=== PATIENT | male | born 1970 | race Caucasian/White ===

== ENCOUNTER 2016-11-30 13:34 | Emergency (ER) ==
[2016-11-30 13:41] VITALS: BP 149/105; TEMP 98.5; BMI 30.9
--- NOTE | 2016-11-30 14:16 | CT ---
EXAM: CT of the right femur. HISTORY: Injury. COMPARISON: CT of the abdomen pelvis dated 11/08/2013. No current plain films are available. TECHNIQUE: Contiguous axial images were obtained through the right femur. Sagittal and coronal refo rmats were reviewed. No contrast. FINDINGS: There is sclerosis and fusion of the right sacroiliac joint. There is fragmentation of th e anterior acetabulum which appears chronic in nature and likely from prior injury. The margins are well corticated. The appearance is unchanged in comparison to the study dated 11/08/2013. No acute f ractures are identified. There are no lytic or blastic lesions. The soft tissues are unremarkable. No fluid collections are identified. No definite hematoma. IMPRESSION: 1. No acute fractures. 2. Probable old fracture of the anterior acetabulum.
--- NOTE | 2016-11-30 14:24 | CT ---
EXAM: CT of the right knee. HISTORY: Trauma. COMPARISON: None. No plain film. TECHNIQUE: Contiguous axial images images at 2 mm intervals obtained through the right knee. Sagitt al and coronal reformats reviewed. FINDINGS: There are no acute fractures. There are no lytic or blastic lesions. There is no signifi cant joint effusion. The anterior and posterior cruciate ligaments appear intact. There is irregula rity of the anterior tibial tubercle which appears chronic or congenital in nature. The soft tissues are normal. There are no fluid collections are mass lesions. IMPRESSION: No acute fractures.
--- NOTE | 2016-11-30 14:45 | ED.PDOC ---
General ED Provider: Dr. REYES LOGAN-ER Chief Complaint: Extremity Pain/Injury Stated Complaint: a tree limb snapped back and hit my thigh a few days ago--it still hurts--my leg is not swollen Time Seen by Physician: 13:40 Mode of Arrival: Walk-In Information Source: Patient Exam Limitations: No limitations Nursing and Triage Documentation Reviewed and Agree: Yes Musculoskeletal Complaint Exam - Lower Extremity Complaint/Exam Location of Pain: Reports: Right, Leg Mechanism of Injury: Reports: Trauma Onset/Duration: a few days Symptoms Are: Still present Onset of Pain: Reports: Immediate Initial Severity: Mild Current Severity: Mild Location: Reports: Discrete (right thigh) Character: Reports: Dull, Aching, Stiffness Alleviating: Reports: Rest, Position Aggravating: Reports: Movement, Weight bearing, Prolonged standing Able to Bear Weight: Yes Associated Signs and Symptoms: Denies: Swelling, Redness, Bruising, Fever, Weakness, Numbness, Tingling DVT Risk Factors: Reports: Recent trauma Septic Arthritis Risk Factors: Reports: None Related Surgical History: Reports: None Lower Extremity Findings: Present: Ecchymosis, Tenderness NV Bundle Intact Distal to Injury: Yes Compartment Syndrome Risk Factors: Present: Pain Rasheeda's Sign Present: No Differential Diagnoses: Compartment Syndrome, Contusion, Strain, Sprain Review of Systems - Review Of Systems Constitutional: Reports: No symptoms Eyes: Reports: No symptoms Ears, Nose, Mouth, Throat: Reports: No symptoms Respiratory: Reports: No symptoms Cardiac: Reports: No symptoms GI: Reports: No symptoms : Reports: No symptoms Musculoskeletal: Reports: Muscle pain Skin: Reports: No symptoms Neurological: Reports: No symptoms Endocrine: Reports: No symptoms Hematologic/Lymphatic: Reports: No symptoms All Other Systems: Reviewed and Negative Past Medical History - Past Medical History Previously Healthy: Yes Endocrine: Reports: Unknown Cardiovascular: Reports: Unknown Respiratory: Reports: Unknown Hematological: Reports: Unknown Gastrointestinal: Reports: Unknown Genitourinary: Reports: Unknown Neuro/Psych: Reports: Unknown Musculoskeletal: Reports: Unknown Cancer: Reports: Unknown - Surgical History General Surgical History: Reports: Unknown - Family History Family History: Reports: Unknown - Social History Smoking Status: Current every day smoker, Light tobacco smoker Hx Substance Use: No Alcohol Screening: Occasionally Physical Exam - Physical Exam Appearance: Well-appearing, No pain distress, Well-nourished Pain Distress: Mild Eyes: LATISHA, EOMI, Conjunctiva clear ENT: Ears normal, Nose normal, Oropharynx normal Neck: Supple Respiratory: Airway patent Cardiovascular: RRR, Pulses normal, No rub, No murmur GI/: Soft, Nontender, No masses, Bowel sounds normal, No Organomegaly Musculoskeletal: Limited ROM Skin: Warm, Dry, Normal color Neurological: Sensation intact, Motor intact, Reflexes intact, Cranial nerves intact, Alert, Oriented Psychiatric: Affect appropriate, Mood appropriate Physician Notification - Case Discussed Physician Notified: dr drew--accepted er evaluation and u/s of extremity Time of Notification: 15:01 Critical Care Note - Critical Care Note Total Time (mins): 0 Course - Course Orders, Labs, Meds: Lab Review 11/30/16 14:06 D-Dimer (Manual) 1348.68 Orders Category Date Time Status D-DIMER Stat LAB 11/30/16 14:[address] FEMUR RIGHT WITHOUT CONTRAS Stat RADS 11/30/16 13:[address] KNEE RIGHT WITHOUT CONTRAST Stat RADS 11/30/16 13:41 Completed Vital Signs: Temp Pulse Resp BP Pulse Ox 11/30/16 13:36 98.5 F 97 H 16 149/105 H 98 Departure - Departure Time of Disposition: 15:01 Disposition: TSF SHORT-TRM HOSP Discharge Problem: Injury of lower extremity Instructions: Leg Pain (ED) Condition: Good Pt referred to PMD for follow-up: Yes Additional Instructions: [facility] for dvt Allergies/Adverse Reactions: Allergies Sulfa (Sulfonamide Antibiotics) Adverse Reaction (Verified 11/30/16 13:41) venom-honey bee [bee venom (honey bee)] Adverse Reaction (Verified 11/30/16 13: 41) Home Medications: Ambulatory Orders Aspirin [Aspirin EC] 325 mg PO DAILYWM 05/29/13 Atorvastatin Calcium [Lipitor] 20 mg PO DAILY 05/29/13 Glipizide [Glucotrol Xl] 20 mg PO BID 05/29/13 Metformin HCl [Glucophage] 1,000 mg PO BID 05/29/13 Metoprolol Tartrate [Lopressor] 50 mg PO BID 05/29/13 Paroxetine HCl [Paxil] 20 mg PO DAILY 05/29/13 Quinapril HCl [Accupril] 80 mg PO DAILY 05/29/13 Dulaglutide [Trulicity] 0.75 mg SQ WEEKLY 11/30/16 Mirtazapine [Remeron] 15 mg PO DAILY 11/30/16 Sitagliptin Phosphate [Januvia] 25 mg PO DAILY 11/30/16 Transfer Form Completed: Yes Disposition Discussed With: Patient
== END 2016-11-30 15:53 | disposition short-term general hospital (02) ==
LOC: ED 13:34
DX: S79.921A Unspecified injury of right thigh, initial encounter (principal); M79.604 Pain in right leg; W22.8XXA Striking against or struck by other objects, initial encounter; F17.210 Nicotine dependence, cigarettes, uncomplicated
CPT/HCPCS: 36415; 85379; 99285

== ENCOUNTER 2016-12-14 10:01 | Emergency (ER) ==
[2016-12-14 10:02] VITALS: BMI 30.9
[2016-12-14 10:05] VITALS: BP 142/96; TEMP 97.4
--- NOTE | 2016-12-14 10:06 | ED.PDOC ---
General ED Provider: Dr. REYES LOGAN-ER Chief Complaint: Tooth Problem Stated Complaint: my tooth hurts and i want some antbx and i dont want any pain meds Time Seen by Physician: 10:04 Mode of Arrival: Walk-In Information Source: Patient Exam Limitations: No limitations Primary Care Provider: NAGI PATEL Nursing and Triage Documentation Reviewed and Agree: Yes EENT Complaint Exam - Dental/Oral Complaint/Exam Mechanism of Injury: No known trauma Onset/Duration: 2 days Symptoms Are: Still present Timing: Constant Initial Severity: Mild Current Severity: Mild Location: right lower molar Character: Reports: Dull, Aching, Throbbing Aggravating: Reports: Heat, Cold, Chewing Associated Signs and Symptoms: Denies: Swelling, Discharge, Fever, Foul odor, Foul taste in mouth Related History: Reports: Previous tooth problem Tooth Findings: Present: Percussion tenderness Cervical Lymphadenopathy Present: No Facial Swelling Present: No Bleeding Present: No Oropharynx Findings: Absent: Clots, Active bleeding Septal Hematoma: No Foreign Body Present: No Dysphagia Present: No Drooling Present: No Asymmetrical Tonsillar Swelling Present: No Uvula Midline: Yes Kimberley-tonsillar Fluctuence: No Trismus Present: No Palatal Petechiae Present: No Scarlatinaform Rash Present: No Differential Diagnoses: Odontogenic Pain Review of Systems - Review Of Systems Constitutional: Reports: No symptoms Eyes: Reports: No symptoms Ears, Nose, Mouth, Throat: Reports: Mouth pain Respiratory: Reports: No symptoms Cardiac: Reports: No symptoms GI: Reports: No symptoms : Reports: No symptoms Musculoskeletal: Reports: No symptoms Skin: Reports: No symptoms Neurological: Reports: No symptoms Endocrine: Reports: No symptoms Hematologic/Lymphatic: Reports: No symptoms All Other Systems: Reviewed and Negative Past Medical History - Past Medical History Previously Healthy: Yes Endocrine: Reports: Unknown Cardiovascular: Reports: Unknown Respiratory: Reports: Unknown Hematological: Reports: Unknown Gastrointestinal: Reports: Unknown Genitourinary: Reports: Unknown Neuro/Psych: Reports: Unknown Musculoskeletal: Reports: Unknown Cancer: Reports: Unknown - Surgical History General Surgical History: Reports: Unknown - Family History Family History: Reports: Unknown - Social History Smoking Status: Current every day smoker, Light tobacco smoker Hx Substance Use: No Alcohol Screening: Occasionally Physical Exam - Physical Exam Appearance: Well-appearing, No pain distress, Well-nourished Pain Distress: Mild Eyes: LATISHA, EOMI, Conjunctiva clear ENT: Ears normal, Nose normal (noted percussion tenderness around right lower molar---gums sl swollen and erythematous), Rhinorrhea Neck: Supple Respiratory: Airway patent, Breath sounds clear, Breath sounds equal, Respirations nonlabored Cardiovascular: RRR GI/: Soft, Nontender, No masses, Bowel sounds normal, No Organomegaly Musculoskeletal: Normal strength Skin: Warm Neurological: Sensation intact Psychiatric: Affect appropriate, Mood appropriate Critical Care Note - Critical Care Note Total Time (mins): 0 Departure - Departure Time of Disposition: 10:06 Disposition: HOME SELF-CARE Discharge Problem: Toothache Instructions: Toothache (ED) Condition: Good Pt referred to PMD for follow-up: Yes Additional Instructions: augmentin 875mg bid x 7 days-see dentist tomorrow(you have declined pain meds) Allergies/Adverse Reactions: Allergies Sulfa (Sulfonamide Antibiotics) Adverse Reaction (Verified 11/30/16 13:41) venom-honey bee [bee venom (honey bee)] Adverse Reaction (Verified 11/30/16 13: 41) Home Medications: Ambulatory Orders Aspirin [Aspirin EC] 325 mg PO DAILYWM 05/29/13 Atorvastatin Calcium [Lipitor] 20 mg PO DAILY 05/29/13 Glipizide [Glucotrol Xl] 20 mg PO BID 05/29/13 Metformin HCl [Glucophage] 1,000 mg PO BID 05/29/13 Metoprolol Tartrate [Lopressor] 50 mg PO BID 05/29/13 Paroxetine HCl [Paxil] 20 mg PO DAILY 05/29/13 Quinapril HCl [Accupril] 80 mg PO DAILY 05/29/13 Dulaglutide [Trulicity] 0.75 mg SQ WEEKLY 11/30/16 Mirtazapine [Remeron] 15 mg PO DAILY 11/30/16 Sitagliptin Phosphate [Januvia] 25 mg PO DAILY 11/30/16 Disposition Discussed With: Patient
== END 2016-12-14 10:09 | disposition home or self-care (01) ==
LOC: ED 10:01
DX: K08.89 Other specified disorders of teeth and supporting structures (principal); F17.210 Nicotine dependence, cigarettes, uncomplicated
CPT/HCPCS: 99281

== ENCOUNTER 2017-07-24 07:00 | Inpatient (IN) ==
[2017-07-24 07:06] VITALS: BMI 31.0
--- NOTE | 2017-07-24 08:43 | CT ---
EXAM: CT chest without contrast. HISTORY: Right-sided chest pain, cough. COMPARISON: None available. TECHNIQUE: Multiple axial images of the chest were obtained without intravenous contrast. Images we re reformatted in the sagittal and coronal planes. FINDINGS: Evaluation for lymphadenopathy is limited by lack of intravenous contrast. No suggestion of lymphadenopathy in the mediastinum or hilum. Nonenlarged axillary lymph nodes are present bilater ally. Heart size is normal. No pericardial effusion identified. Azygos fissure is present. Calcified granulomatous changes are present. There is a small focus of c onsolidation in the right middle lobe near the diaphragm but the lungs are otherwise clear without pl eural effusion or pneumothorax. Limited images of the upper abdomen demonstrate diffuse low density of the liver. No acute osseous a bnormality identified. IMPRESSION: 1. Right middle lobe consolidation suggesting pneumonia. Follow-up chest CT in 3 months recommended for reassessment. 2. Fatty infiltration of the liver.
--- NOTE | 2017-07-24 08:47 | ED.PDOC ---
General ED Provider: Dr. JUSTO ALCARAZ Chief Complaint: Chest Wall Injury/Pain Stated Complaint: Pt with history of COPD, DM and CAD presents to the ED with c/ o right chest pain starting this morning. Pt describes the pain is dull in nature. Associated symptom includes exertional dyspnea and non-productive intermittent cough. Nothing makes the pain, but taking deep breaths makes the pain worse. Pt states that he was overdoing yesterday. Pt denies fever, chill or HULL. Time Seen by Physician: 07:00 Mode of Arrival: Walk-In Information Source: Patient Exam Limitations: No limitations Primary Care Provider: NAGI PATEL Nursing and Triage Documentation Reviewed and Agree: Yes Reviewed sepsis parameters & appropriate labs ordered?: Yes System Inflammatory Response Syndrome: Not Applicable Sepsis Protocol: For patient's 13 years and over: Temp is 96.8 and below OR 101 and greater Pulse >90 BPM Resp >20/minute Acutely Altered Mental Status Are patient's symptoms suggestive of a new infection, such as: -Pneumonia -Skin, Soft Tissue -Endocarditis -UTI -Bone, Joint Infection -Implantable Device -Acute Abdominal Infection -Wound Infection -Meningitis -Blood Stream Catheter Infection -Unknown Cardiovascular Complaint Exam - Chest Pain Complaint/Exam Onset: Sudden Duration: 1 day Symptoms Are: Still present Timing: Intermittent Length of Chest Pain Episodes: 1 day Initial Severity: Moderate Current Severity: Moderate Location: Reports: Diffuse, Right lateral Pain Radiates: Reports: None Character: Reports: Dull Aggravating: Reports: None, Exertion Alleviating: Reports: None Associated Signs and Symptoms: Denies: Diaphoresis, Nausea, Vomiting, Fever, Palpitations, Cough (non productive/intermittent cough ), Hemoptysis, Back pain , Abdominal pain, Dizziness, Short of air, Calf pain, Calf swelling Related History: Reports: Current Triston Inhibitors Related Surgical History: Reports: None History of Healthcare-Acquired Pneumonia: Reports: No AMI/ACS Risk Factors: Reports: Diabetes, Obesity, Family history, Hypertension, Smoking TAD Risk Factors: Reports: Hypertension, Smoking Pulmonary Embolism Risk Factors: Reports: None Prior Care for this Complaint: No Recent Stress Test: No JVD Present: No Subcutaneous Emphysema Present: No Diminshed Breath Sounds: No Reproducible Chest Wall Pain: Yes (deep inspiration makes the pain worse) Bilateral Pulses Present: Yes Unequal Pulses Noted: No If Risk Factors for AMI/ACS Consider: EKG, Cardiac Enzymes Differential Diagnoses: Chest Wall Pain Quality Indicator For Non-Traumatic Chest Pain/Syncope: EKG Performed Review of Systems - Review Of Systems Constitutional: Reports: No symptoms Eyes: Reports: No symptoms Ears, Nose, Mouth, Throat: Reports: No symptoms Respiratory: Reports: Cough Cardiac: Reports: Chest pain (right sided entirely reproduceable ) GI: Reports: No symptoms : Reports: No symptoms Musculoskeletal: Reports: No symptoms Skin: Reports: No symptoms Neurological: Reports: No symptoms Endocrine: Reports: No symptoms Hematologic/Lymphatic: Reports: No symptoms All Other Systems: Reviewed and Negative Past Medical History - Past Medical History Previously Healthy: Yes Endocrine: Reports: Unknown Cardiovascular: Reports: Unknown Respiratory: Reports: Unknown Hematological: Reports: Unknown Gastrointestinal: Reports: Unknown Genitourinary: Reports: Unknown Neuro/Psych: Reports: Unknown Musculoskeletal: Reports: Unknown Cancer: Reports: Unknown - Surgical History General Surgical History: Reports: Unknown - Family History Family History: Reports: Unknown - Social History Smoking Status: Current every day smoker, Light tobacco smoker Hx Substance Use: No Alcohol Screening: None Physical Exam - Physical Exam Appearance: Well-appearing, No pain distress, Well-nourished Eyes: LATISHA, EOMI, Conjunctiva clear ENT: Ears normal, Nose normal, Oropharynx normal Respiratory: Airway patent, Breath sounds clear, Breath sounds equal, Respirations nonlabored Cardiovascular: RRR, Pulses normal, No rub, No murmur GI/: Soft, Nontender, No masses, Bowel sounds normal, No Organomegaly Musculoskeletal: Normal strength (right sided chest pain noted on right chest palpation. ), ROM intact, No edema, No calf tenderness Skin: Warm, Dry, Normal color Neurological: Sensation intact, Motor intact, Reflexes intact, Cranial nerves intact, Alert, Oriented Psychiatric: Affect appropriate, Mood appropriate Interpretation - Radiology Interpretation Radiology Interpretation By: Radiologist Radiology Results: Positive (RML PNEUMONIA) - Outside Machinist Rate: Normal Rhythm: Sinus Ectopy: None - EKG Interpretation Rate: Normal Rhythm: Sinus Ectopy: None [place]: NL ST Segment: Normal Physician Notification - Case Discussed Physician Notified: PMD Time of Notification: 09:23 Admit To: Inpatient Critical Care Note - Critical Care Note Total Time (mins): 0 Course - Course Hematology/Chemistry: 07/24/17 07:47 07/24/17 07:47 Orders, Labs, Meds: Lab Review 0607/24/17 07/24/17 07:29 07:47 07:47 WBC 11.33 H RBC 4.53 L Hgb 14.0 Hct 40.5 L MCV 89.4 MCH 30.9 MCHC 34.6 RDW Coeff of Ok 14.0 Plt Count 193 Immature Gran % (Auto) 0.5 Neut % (Auto) 61.1 Lymph % (Auto) 24.3 Griggs % (Auto) 12.5 H Eos % (Auto) 1.2 Baso % (Auto) 0.4 Immature Gran # (Auto) 0.1 Neut # (Auto) 6.9 Lymph # (Auto) 2.8 Griggs # (Auto) 1.4 Eos # (Auto) 0.1 Baso # (Auto) 0.0 Puncture Site R rad O2 Saturation 94.0 L ABG pH 7.404 ABG pCO2 36.0 ABG pO2 70.0 L ABG HCO3 22.5 ABG Total CO2 24 ABG Base Excess -2 Marco A Test + FiO2 % 21.0 Sodium 134 L Potassium 3.8 Chloride 102 Carbon Dioxide 23 Anion Gap 12.8 BUN 6 L Creatinine 0.90 Estimated GFR (MDRD) 90.00 BUN/Creatinine Ratio 6.66 Glucose 187 H Calcium 8.7 Total Bilirubin 0.5 AST 38 H ALT 48 Alkaline Phosphatase 72 Total Creatine Kinase CK-MB (CK-2) CK-MB (CK-2) % Troponin I Total Protein 6.6 Albumin 3.8 Globulin 2.8 Albumin/Globulin Ratio 1.36 Urine Opiates Screen Ur Oxycodone Screen Urine Methadone Screen Ur Propoxyphene Screen Ur Barbiturates Screen U Tricyclic Antidepress Ur Phencyclidine Scrn Ur Amphetamine Screen U Methamphetamines Scrn U Benzodiazepines Scrn Urine Cocaine Screen U Cannabinoids Screen 07/24/17 07/24/17 07:47 08:30 WBC RBC Hgb Hct MCV MCH MCHC RDW Coeff of Ok Plt Count Immature Gran % (Auto) Neut % (Auto) Lymph % (Auto) Griggs % (Auto) Eos % (Auto) Baso % (Auto) Immature Gran # (Auto) Neut # (Auto) Lymph # (Auto) Griggs # (Auto) Eos # (Auto) Baso # (Auto) Puncture Site O2 Saturation ABG pH ABG pCO2 ABG pO2 ABG HCO3 ABG Total CO2 ABG Base Excess Marco A Test FiO2 % Sodium Potassium Chloride Carbon Dioxide Anion Gap BUN Creatinine Estimated GFR (MDRD) BUN/Creatinine Ratio Glucose Calcium Total Bilirubin AST ALT Alkaline Phosphatase Total Creatine Kinase 254 CK-MB (CK-2) Pending CK-MB (CK-2) % Pending Troponin I < 0.0100 Total Protein Albumin Globulin Albumin/Globulin Ratio Urine Opiates Screen Negative Ur Oxycodone Screen Negative Urine Methadone Screen Negative Ur Propoxyphene Screen Negative Ur Barbiturates Screen Negative U Tricyclic Antidepress Negative Ur Phencyclidine Scrn Negative Ur Amphetamine Screen Negative U Methamphetamines Scrn Negative U Benzodiazepines Scrn Negative Urine Cocaine Screen Negative U Cannabinoids Screen Negative Orders Category Date Time Status ADMIT PATIENT [facility]PAT[facility] ADMISSION 07/24/17 09: 10 Active ABG DRAW REQUEST Stat CARDIO 07/24/17 07:29 Completed EKG-(ED ONLY) Stat CARDIO 07/24/17 07:29 Completed NEBULIZER TREATMENT Routine CARDIO 07/24/17 09:10 Ordered TELEMETRY MONITORING TELE CARE 07/24/17 09:11 Active ABG Stat LAB 07/24/17 07:29 Completed BLOOD CULTURE Stat LAB 07/24/17 09:04 Ordered BNP [B-TYPE NATRIURETIC PEPTIDE] Stat LAB 07/24/17 07:47 Received CBC W/ AUTO DIFF Stat LAB 07/24/17 07:47 Completed COMPREHENSIVE METABOLIC PANEL Stat LAB 07/24/17 07:47 Completed CREATINE KINASE Stat LAB 07/24/17 07:47 Results DRUG SCREEN (RAPID FOR ED) [DRUG SCREEN, URINE, RAPID] LAB 07/24/17 08:30 Completed Stat LACTIC ACID Stat LAB 07/24/17 09:03 Ordered PROCALCITONIN Stat LAB 07/24/17 Ordered TROPONIN I Stat LAB 07/24/17 07:47 Results Aspirin [Aspirin EC] MEDS 07/25/17 08:00 Ordered 325 mg PO DAILYWM Atorvastatin Calcium [Lipitor] MEDS 07/25/17 09:00 Ordered 20 mg PO DAILY Azithromycin Inj [Zithromax] 500 mg MEDS 07/24/17 09:18 Ordered 0.9 % Sodium Chloride [Sodium Chloride] 250 ml IV ONCE Ceftriaxone Sodium [Rocephin] 1 gm MEDS 07/24/17 09:18 Ordered 0.9 % Sodium Chloride [Sodium Chloride] 50 ml IV ONCE Ipratropium/Albuterol Neb [Duoneb] MEDS 07/24/17 12:00 Ordered 1 vial NEB RTQ6H Methylprednisolone Sod Succ/Pf [Solu-Medrol 125 mg] MEDS 07/24/17 09:09 Stat 125 mg IVP ONCE STA Methylprednisolone Sod Succ/Pf [Solu-Medrol 40 mg] MEDS 07/24/17 21:00 Ordered 40 mg IVP Q12HR Metoprolol Tartrate [Lopressor] MEDS 07/24/17 21:00 Ordered 50 mg PO BID Quinapril HCl [Accupril] MEDS 07/25/17 09:00 Ordered [address] CHEST W/O CONTRAST Stat RADS 07/24/17 07:30 Completed Medications Generic Name Dose Route Start Last Admin Trade Name Freq PRN Reason Stop Dose Admin Albuterol/Ipratropium 1 vial 07/24/17 12:00 Duoneb NEB RTQ6H MAREK Aspirin 325 mg 07/25/17 08:00 Aspirin Ec PO DAILYWM [facility] Atorvastatin Calcium 20 mg 07/25/17 09:00 Lipitor PO DAILY [facility] Ceftriaxone Sodium 1 gm/ 50 mls @ 75 mls/hr 07/24/17 09:18 Sodium Chloride IV 07/24/17 09:57 ONCE STA Azithromycin 500 mg/ Sodium 250 mls @ 125 mls/hr 07/24/17 09:18 Chloride IV 07/24/17 11:17 ONCE STA Methylprednisolone Sodium Succinate 40 mg 07/24/17 21:00 Solu-Medrol 40 Mg IVP Q12HR [facility] Metoprolol Tartrate 50 mg 07/24/17 21:00 Lopressor PO BID [facility] Quinapril HCl 80 mg 07/25/17 09:00 Accupril PO DAILY MAREK Discontinued Medications Generic Name Dose Route Start Last Admin Trade Name Freq PRN Reason Stop Dose Admin Methylprednisolone Sodium Succinate 125 mg 07/24/17 09:09 Solu-Medrol 125 Mg IVP 07/24/17 09:10 ONCE STA Vital Signs: Temp Pulse Resp BP Pulse Ox 07/24/17 07:01 98.7 F 103 H 20 154/94 H 98 KEON Risk Score KEON Risk Score: Risk Score Odds of by 30D 0 0.1 (0.1-0.2) 1 0.3 (0.2-0.3) 2 0.4 (0.3-0.5) 3 0.7 (0.6-0.9) 4 1.2 (1.0-1.5) 5 2.2 (1.9-2.6) 6 3.0 (2.5-3.6) 7 4.8 (3.8-6.1) Departure - Departure Time of Disposition: 09:22 Disposition: ADMITTED INPATIENT Discharge Problem: Right middle lobe pneumonia Qualifiers: Pneumonia type: due to unspecified organism Qualified Code(s): J18.1 - Lobar pneumonia, unspecified organism Instructions: Bacterial Pneumonia (ED) Condition: Good Pt referred to PMD for follow-up: Yes IPMP verified?: No Additional Instructions: Please call your Family Physician as soon as possible to schedule a follow-up appointment. Allergies/Adverse Reactions: Allergies Sulfa (Sulfonamide Antibiotics) Adverse Reaction (Verified 07/24/17 07:08) venom-honey bee [bee venom (honey bee)] Adverse Reaction (Verified 07/24/17 07: 08) Home Medications: Ambulatory Orders Aspirin [Aspirin EC] 325 mg PO DAILYWM 05/29/13 Atorvastatin Calcium [Lipitor] 20 mg PO DAILY 05/29/13 Glipizide [Glucotrol Xl] 20 mg PO DAILY 05/29/13 Metformin HCl [Glucophage] 1,000 mg PO BID 05/29/13 Metoprolol Tartrate [Lopressor] 50 mg PO BID 05/29/13 Paroxetine HCl [Paxil] 20 mg PO DAILY 05/29/13 Quinapril HCl [Accupril] 80 mg PO DAILY 05/29/13 Dulaglutide [Trulicity] 0.75 mg SQ WEEKLY 11/30/16 Mirtazapine [Remeron] 15 mg PO DAILY 11/30/16 Sitagliptin Phosphate [Januvia] 25 mg PO DAILY 11/30/16 Disposition Discussed With: Patient
[2017-07-24] MEDS ORDERED: SOLU-MEDROL 125 MG IM STA (08:51)
[2017-07-24] MEDS ORDERED: SOLU-MEDROL 125 MG IVP STA (09:09)
[2017-07-24] MEDS ORDERED: ROCEPHIN 1 GM in SODIUM CHLORIDE 50 ML IV STA (09:18)
[2017-07-24] MEDS ORDERED: ZITHROMAX 500 MG in SODIUM CHLORIDE 250 ML IV STA (09:18)
[2017-07-24] MEDS ORDERED: ROCEPHIN ONE (09:30)
[2017-07-24] MEDS: DUONEB NEB SCH ×2 (11:07→16:57)
[2017-07-24] MEDS ORDERED: LOPRESSOR PO STA (15:11)
[2017-07-24] MEDS ORDERED: LANOXIN IVP STA (15:11)
[2017-07-24] MEDS: SOLU-MEDROL 40 MG IVP SCH (21:03)
[2017-07-24] MEDS: LOPRESSOR PO SCH (21:03)
[2017-07-25] MEDS: DUONEB NEB SCH ×4 (05:45→19:58)
[2017-07-25] MEDS: ASPIRIN EC PO SCH (08:21)
[2017-07-25] MEDS: ROCEPHIN 1 GM in SODIUM CHLORIDE 50 ML IV SCH (08:21)
[2017-07-25] MEDS: SOLU-MEDROL 40 MG IVP SCH ×2 (08:21→20:46)
[2017-07-25] MEDS: LOPRESSOR PO SCH ×2 (08:21→20:46)
[2017-07-25] MEDS: ACCUPRIL PO SCH (08:22)
[2017-07-25] MEDS: LIPITOR PO SCH (08:22)
[2017-07-25] MEDS ORDERED: REMERON PO PRN (15:19)
[2017-07-25] MEDS ORDERED: JANUVIA ONE (15:27)
[2017-07-25] MEDS ORDERED: NON-FORMULARY MEDICATION (Sitagliptin Phosphate [Januvia] 25 MG) PO SCH (15:30)
[2017-07-25] MEDS ORDERED: NON-FORMULARY MEDICATION (Dulaglutide [Trulicity] 0.75 MG) SQ SCH (15:30)
[2017-07-25] MEDS: PAXIL PO SCH (15:36)
[2017-07-25] MEDS: GLUCOTROL XL PO SCH (15:36)
[2017-07-25] MEDS: HUMULIN R SUBCUT PRN ×2 (17:15→20:46)
[2017-07-25] MEDS ORDERED: GLUCOPHAGE ONE (19:30)
[2017-07-25] MEDS ORDERED: NON-FORMULARY MEDICATION (Metformin Hcl [Glucophage] 1,000 MG) PO SCH (21:00)
[2017-07-26] MEDS: DUONEB NEB SCH ×4 (05:30→20:18)
[2017-07-26] MEDS: HUMULIN R SUBCUT PRN ×4 (06:11→20:46)
[2017-07-26] MEDS: ACCUPRIL PO SCH (08:22)
[2017-07-26] MEDS: ROCEPHIN 1 GM in SODIUM CHLORIDE 50 ML IV SCH (08:22)
[2017-07-26] MEDS: LIPITOR PO SCH (08:22)
[2017-07-26] MEDS: SOLU-MEDROL 40 MG IVP SCH ×2 (08:22→20:53)
[2017-07-26] MEDS: GLUCOPHAGE PO SCH ×2 (08:23→17:06)
[2017-07-26] MEDS: PAXIL PO SCH (08:23)
[2017-07-26] MEDS: GLUCOTROL XL PO SCH (08:23)
[2017-07-26] MEDS: LOPRESSOR PO SCH ×2 (08:23→20:46)
[2017-07-26] MEDS: ASPIRIN EC PO SCH (08:23)
[2017-07-26] MEDS: JANUVIA PO SCH (08:23)
[2017-07-26] MEDS ORDERED: NON-FORMULARY MEDICATION (Dulaglutide [Trulicity] 0.75 MG) SQ SCH (09:00)
--- NOTE | 2017-07-26 18:41 | DI ---
EXAM: Chest two view. HISTORY: Cough, pneumonia COMPARISON: 11/08/2013 FINDINGS: Heart size is normal. There is no localized pulmonary consolidation or pneumonia. Azygos fissure unchanged. Minimal peribronchial thickening. No pleural fluid. No acute finding involving skeletal structures. Impression No localized pneumonia. Mild bronchial wall thickening may represent bronchiolitis versus reactive a irways disease.
[2017-07-27] MEDS: DUONEB NEB SCH ×2 (05:39→10:07)
[2017-07-27] MEDS: HUMULIN R SUBCUT PRN ×2 (06:26→13:05)
[2017-07-27] MEDS: ROCEPHIN 1 GM in SODIUM CHLORIDE 50 ML IV SCH (08:36)
[2017-07-27] MEDS: SOLU-MEDROL 40 MG IVP SCH (08:36)
[2017-07-27] MEDS: GLUCOPHAGE PO SCH (08:36)
[2017-07-27] MEDS: LIPITOR PO SCH (08:36)
[2017-07-27] MEDS: LOPRESSOR PO SCH (08:36)
[2017-07-27] MEDS: ACCUPRIL PO SCH (08:36)
[2017-07-27] MEDS: ASPIRIN EC PO SCH (08:36)
[2017-07-27] MEDS: PAXIL PO SCH (08:37)
[2017-07-27] MEDS: JANUVIA PO SCH (08:37)
[2017-07-27] MEDS: GLUCOTROL XL PO SCH (08:37)
[2017-07-27] MEDS ORDERED: PROAIR HFA IH PRN (08:38)
--- NOTE | 2017-07-27 09:06 | PCM.PROG ---
Attending Provider: ATTENDING PROVIDER: Dr. NAGI PATEL This patient is seen with Veronique Pascual, Nurse Practitioner. DATE OF SERVICE: 07/27/17 SUBJECTIVE: This 47 year old WHITE/ M was hospitalized 07/24/17. The patient is lying in bed, alert. He has been up and about walking around, eating well. Pleuritic pain has resolved. No shortness of breath. REVIEW OF SYSTEMS: CONSTITUTIONAL: No night sweats. No fatigue, malaise, lethargy. No fever or chills. HEENT: Eyes: No visual changes. No eye pain. No eye discharge. ENT: No runny nose. No epistaxis. No sinus pain. No odynophagia. No congestion. RESPIRATORY: Cough. No congestion. No hemoptysis. No shortness of breath. CARDIOVASCULAR: No angina symptoms. No CHF symptoms. No atypical chest pain for CAD. No palpitations. No orthopnea.. GASTROINTESTINAL: No abdominal pain. No nausea or vomiting. No diarrhea or constipation. No hematemesis. No hematochezia. GENITOURINARY: No urgency. No frequency. No dysuria. No hematuria. No obstructive symptoms. No discharge. No pain. No significant abnormal bleeding. MUSCULOSKELETAL: No musculoskeletal pain; no joint swelling. NEUROLOGICAL: Awake, alert, oriented to time, place and person. No headache. No neck pain. No syncope. No seizures. No dizziness. PSYCHIATRIC: Not anxious. No depression. No suicidal thoughts. No homicidal thoughts. SKIN: No rash. No lesions. No wounds. ENDOCRINE: No unexplained weight loss. No weight gain. HEMATOLOGIC/LYMPHATIC: No anemia. No purpura. No petechiae. No prolonged or excessive bleeding. No palpable lymph nodes. PHYSICAL EXAMINATION: GENERAL: The patient is awake, alert and oriented, lying in bed in no distress. VITAL SIGNS: Temperature 97.6 F, Pulse 62, Respiratory Rate 20, BP 122/70, Pulse Ox 97% HEENT: Head normocephalic, atraumatic. Eyes: Extraocular muscles are intact. Pupils are equal, round and reactive to light and accommodation. Ears: No lesions. Nose appeared normal. Throat: No exudate or erythema. NECK: Supple. No JVD, no carotid bruit. No lymphadenopathy or thyromegaly. LUNGS: Diminished breath sounds. Clear to auscultation. Percussion note normal. Chest symmetrical. HEART: S1, S2, no S3. No murmurs. No cyanosis or clubbing. No ascites. Pulses: Dorsalis pedis and posterior tibial pulses +1 to +2 both sides. ABDOMEN: Soft. Non-tender. Bowel sounds active. No CVA tenderness. No mass felt. EXTREMITIES: No edema. Full range of motion of all extremities, equal. NEUROLOGIC: No focal deficit. Cranial nerves II through XII are grossly intact. No headache, no double vision or headache. SKIN: Not dry. Intact. Turgor-normal. LYMPHATIC: No palpable lymph nodes/no lymphedema. MUSCULOSKELETAL: Normal joints with no swelling. Muscle tone is normal. LAB REVIEW: 07/27/17 05:45 07/27/17 05:45 07/27/17 05:45: Sodium 132 L, Potassium 4.7, Chloride 101, Carbon Dioxide 22, Anion Gap 13.7, BUN 13, Creatinine 0.81, Estimated GFR (MDRD) 101.00, BUN/ Creatinine Ratio 16.04, Glucose 245 H, Calcium 9.0, Total Bilirubin 0.3, AST 31 , ALT 59, Alkaline Phosphatase 62, Total Protein 6.2 L, Albumin 3.0 L, Globulin 3.2, Albumin/Globulin Ratio 0.94 07/27/17 05:45: WBC 17.00 H, RBC 4.34 L, Hgb 13.3 L, Hct 38.7 L, MCV 89.2, MCH 30.6, MCHC 34.4, RDW Coeff of Ok 13.8, Plt Count 216, Immature Gran % (Auto) 1.2, Neut % (Auto) 77.4, Lymph % (Auto) 14.8, Rowan % (Auto) 6.5, Eos % (Auto) 0.0, Baso % (Auto) 0.1, Immature Gran # (Auto) 0.2, Neut # (Auto) 13.2 H, Lymph # (Auto) 2.5, Rowan # (Auto) 1.1, Eos # (Auto) 0.0, Baso # (Auto) 0.0 ASSESSMENT: 1. Pneumonia right middle lobe, resolved 2. Pleuritic pain right side, resolved 3. Smoker PLAN: 1. ProAir two puffs q.4 to 6 hr p.r.n. 2. Anticipate d/c home today. 3. Keflex 500 mg t.i.d. times 7 days. 4. Prednisone 10 mg b.i.d. times 5 days. 5. Off work for 7 days. 6. Will see in office on Thursday. Plan and coordination of the patient's care discussed in the presence of Survey Associate and nurse. CONDITION: Stable SCRIBED BY: MICHAEL VILLAVICENCIO [employer] Operations Manager scribed while in presence of service performed by /Veronique Pascual APRN on 07/27/17 ([id number])
--- NOTE | 2017-07-27 09:21 | HP ---
DATE OF SERVICE: 07/24/17 REASON FOR HOSPITALIZATION/HISTORY OF PRESENT ILLNESS: 47 year old white male with a history of COPD who presented to the emergency room with complaint of right chest pain, cough. He feels that he is somewhat short of breath with exertion. He denies any fever or chills. PAST MEDICAL HISTORY: COPD Diabetes Mellitus type 2 Coronary artery disease Dyslipidemia Obesity Hypertension Anxiety Depression Restless leg syndrome PAST SURGICAL HISTORY: Unknown REVIEW OF SYSTEMS: CONSTITUTIONAL: No night sweats. No fatigue, malaise, lethargy. No fever or chills. HEENT: Eyes: No visual changes. No eye pain. No eye discharge. ENT: No runny nose. No epistaxis. No sinus pain. No sore throat. No odynophagia. No ear pain. No congestion. RESPIRATORY: Cough, no congestion. No hemoptysis. Shortness of breath with exertion. CARDIOVASCULAR: No angina symptoms. No CHF symptoms. No atypical chest pain for CAD. No palpitations. No PND. No orthopnea. Right sided chest pain worse with coughing. GASTROINTESTINAL: No abdominal pain. No nausea or vomiting. No diarrhea or constipation. No hematemesis. No hematochezia. GENITOURINARY: No urgency. No frequency. No dysuria. No hematuria. No obstructive symptoms. No discharge. No pain. No significant abnormal bleeding. MUSCULOSKELETAL: No musculoskeletal pain. No joint swelling. No arthritis. NEUROLOGICAL: No headache. No neck pain. No syncope. No seizures. No dizziness. PSYCHIATRIC: Not anxious. No depression. No suicidal thoughts. No homicidal thoughts. SKIN: No rash. No lesions. No wounds. ENDOCRINE: No unexplained weight loss. No weight gain. HEMATOLOGIC/LYMPHATIC: No anemia. No purpura. No petechiae. No prolonged or excessive bleeding. No palpable lymph nodes. PERSONAL/FAMILY/SOCIAL HISTORY: The patient is a current daily smoker. He resides at home with his . No alcohol or illicit drug use. MEDICATIONS: Paxil 20mg PO daily Glucotrol XL 20mg PO daily Lopressor 50mg PO twice a day Glucophage 1,000mg PO twice a day Accupril 80mg PO daily Aspirin 325mg PO daily Lipitor 20mg PO daily Januvia 25mg PO daily Trulicity 0.75mg SQ weekly Remeron 15mg PO bedtime PRN ALLERGIES: Sulfa Venom-honey bee PHYSICAL EXAMINATION: GENERAL: The patient is alert and oriented. VITAL SIGNS: Temperature 98.7, heart rate 103, respiratory rate 20, blood pressure 154/94 and pulse ox 98%. HEENT: Head normocephalic, atraumatic. Eyes: Extraocular muscles are intact. Pupils are equal, round and reactive to light and accommodation. Ears: No lesions. Nose appeared normal. Throat: No exudate or erythema. NECK: Supple. No JVD, no carotid bruit. No lymphadenopathy or thyromegaly. LUNGS: Diminished breath sounds bilaterally. Tachycardia Clear to auscultation. Percussion note normal. Chest symmetrical. HEART: S1, S2, no S3. No murmurs. No cyanosis or clubbing. No ascites. Pulses: Dorsalis pedis and posterior tibial pulses +1 to +2 bilaterally. ABDOMEN: Soft. Nontender. Bowel sounds active. No CVA tenderness. No mass felt. EXTREMITIES: No edema. Full range of motion of all extremities, equal. NEUROLOGIC: No focal deficit. Cranial nerves II through XII are grossly intact. No headache, no double vision or headache. SKIN: Not dry. Intact. Turgor - normal. LYMPHATIC: No palpable lymph nodes/no lymphedema. MUSCULOSKELETAL: Normal joints with no swelling. Muscle tone is normal. LABS: WBC 11.33, hgb 14.0, hct 40.5, plt count 193, sodium 134, potassium 3.8, BUN 6, creatinine 0.9 and gplt count 187. ABG's O2 sat 94, pH 7.404, pCO2 36, pO2 70, bicarb 22.5, total CO2 24, base excess -2, EKG and cardiac enzymes were negative. CT of the chest revealed lower pneumonia. Drug screen was negative. ASSESSMENT: 1. Right middle lobe pneumonia 2. Right sided pleuritic type pain 3. COPD 4. Smoker 5. Obesity 6. Hypertension 7. Diabetes Mellitus type 2 8. Depression 9. Anxiety 10.History of noncompliance with diet and lifestyle PLAN: 1. Admit 2. Routine Telemetry orders 3. CBC and CMP daily 4. Zithromax 500mg PO daily for three days 5. Rocephin 1 gram IV daily 6. DUO NEBS Q 6 hours 7. Solu-Cortef 125mg IV Q 8 hours 8. DUO NEBS Q 6 hours 9. Diabetic diet 10.ABG's stat 11.Oxygen at 1-2 liters as needed 12.Tylenol as needed for fever 13.Continue all home medications. Will follow closely TIME SPENT: More than 70 minutes. MTDD
[2017-07-27 09:43] VITALS: BP 136/87; TEMP 98.8
--- NOTE | 2017-07-27 10:19 | CM.DICTOOL ---
ADMISSION: 07/24/17 09:25 DISCHARGE: JULY 27, 2017 DATE OF SERVICE: 07/27/17 FINAL DIAGNOSIS PNEUMONIA, RML PER CT COPD ATRIAL FIBRILLATION, BRIEF EPISODE HYPERTENSION CAD HYPERCHOLESTEROLEMIA FATTY LIVER PER CT DIABETES MELLITUS, TYPE 2 SC, 2007 TOBACCO USE BILATERAL INGUINAL HERNIA REPAIR ACHILLES TENDON LENGTHENING, AGE 3 LAST VITALS Temp Pulse Resp BP Pulse Ox 97.6 F 62 20 122/70 97 07/27/17 05:10 07/27/17 05:10 07/27/17 05:10 07/27/17 05:10 07/27/17 05:10 TAKE THESE MEDICATIONS AT HOME Albuterol Sulfate (Proair Hfa) 2 puff IH Q4-6H PRN PRN Reason: SHORTNESS OF AIR/WHEEZING Aspirin ([facility]in Ec) [facility] Last Admin: 07/27/17 08:36 Dose: 325 mg Atorvastatin Calcium (Lipitor) 20 mg PO DAILY [facility] Last Admin: 07/27/17 08:36 Dose: 20 mg Glipizide (Glucotrol Xl) 20 mg PO DAILY [facility] Last Admin: 07/27/17 08:37 Dose: 20 mg Metformin HCl (Glucophage) 1,000 mg PO [facility] Last Admin: 07/27/17 08:36 Dose: 1,000 mg Metoprolol Tartrate (Lopressor) 50 mg PO BID [facility] Last Admin: 07/27/17 08:36 Dose: 50 mg Mirtazapine (Remeron) 15 mg PO BEDTIME PRN PRN Reason: Insomnia Non-Formulary Medication (Dulaglutide [Trulicity]) 0.75 mg SQ WEEKLY [facility] Last Admin: 07/26/17 08:24 Dose: Not Given Paroxetine HCl (Paxil) 20 mg PO DAILY [facility] Last Admin: 07/27/17 08:37 Dose: 20 mg Quinapril HCl (Accupril) 80 mg PO DAILY [facility] Last Admin: 07/27/17 08:36 Dose: 80 mg Sitagliptin Phosphate (Januvia) 25 mg PO DAILY [facility] Last Admin: 07/27/17 08:37 Dose: 25 mg Keflex 500 mg TID for 7 DAYS Last Admin: Prednisone 10 mg BID for 5 days Last Admin: ALLERGIES Sulfa (Sulfonamide Antibiotics) Adverse Reaction (Verified 07/24/17 07:08) venom-honey bee [bee venom (honey bee)] Adverse Reaction (Verified 07/24/17 07: 08) NEW PRESCRIPTIONS: Keflex 500 mg TID for 7 days Prednisone 10 mg BID for 5 days. Take with food ProAir Inhaler 2 puffs every 4-6 hours prn shortness of air/wheezing SMOKING: Adivsed to stop smoking DISEASE SPECIFIC EDUCATION: Smoking cessation Use of Inhaler Steroid use and risk of GI irritation, bone demineralization Outpatient testing Appointment LAB REVIEW: 07/27/17 05:45 07/27/17 05:45 07/27/17 05:45: Sodium 132 L, Potassium 4.7, Chloride 101, Carbon Dioxide 22, Anion Gap 13.7, BUN 13, Creatinine 0.81, Estimated GFR (MDRD) 101.00, BUN/ Creatinine Ratio 16.04, Glucose 245 H, Calcium 9.0, Total Bilirubin 0.3, AST 31 , ALT 59, Alkaline Phosphatase 62, Total Protein 6.2 L, Albumin 3.0 L, Globulin 3.2, Albumin/Globulin Ratio 0.94 07/27/17 05:45: WBC 17.00 H, RBC 4.34 L, Hgb 13.3 L, Hct 38.7 L, MCV 89.2, MCH 30.6, MCHC 34.4, RDW Coeff of Ok 13.8, Plt Count 216, Immature Gran % (Auto) 1.2, Neut % (Auto) 77.4, Lymph % (Auto) 14.8, Hardy % (Auto) 6.5, Eos % (Auto) 0.0, Baso % (Auto) 0.1, Immature Gran # (Auto) 0.2, Neut # (Auto) 13.2 H, Lymph # (Auto) 2.5, Hardy # (Auto) 1.1, Eos # (Auto) 0.0, Baso # (Auto) 0.0 PLAN: DISCHARGE HOME DIET: REGULAR TOLERATED, HEART HEALTHY ACTIVITY: GRADUALLY RESUME TOLERATED NO WORK FOR 7 DAYS L AN APPOINTMENT IS SCHEDULED WITH /FRANTZ JUNG APRN ON July AT 12 NO[address]. WAGNER IS ALERT AND ORIENTED X 3. HE IS INDEPENDENT WITH ACTIVITIES OF DAILY LIVING AND DOES NOT REQUIRE ANY ASSISTIVE DEVICE WITH AMBULATION. HE DOES NOT REQUIRE USE OF OXYGEN WITH SATURATIONS IN THE UPPER 90'S. MEAL INTAKES ARE GOOD AT 100%, HE DENIES NAUSEA, ABDOMINAL PAIN OR LOOSE STOOLS. HIS SKIN IS INTACT AND FREE OF SKIN IRRITATION OR SKIN BREAKDOWN. NAGI PATEL MD FRANTZ JUNG APRN
--- NOTE | 2017-07-27 14:32 | ECHO2D ---
Date of Exam: 07/25/17 Ordering Physician: DR. NAGI PATEL Room #: [id number] Reason for Echo: ATRIAL FIBRILLATION M-Mode Normal Adult Results LV Dimensions Normal Adult Results AoV Opening excursions >1.6 >1.6 LVEDD-base- 3.5-5.8 4.9 Ao root dimensions 2.0-3.7 3.4 LVESD-base- 3.1-4.6 L. Atrium dimensions 1.9-3.8 4.4 Post. Wall thickness 0.8-1.1 1.3 IV septum (thickness) 0.7-1.2 1.4 Post. Wall excursion 0.72-1.3 Septal motion NORMAL Systolic motion R. Ventricular cavity 1.5-2.0 NORMAL LVEF 60% 56% Paradoxical septal wall motion NORMAL 2-D : 2-D M Mode Echocardiogram was performed using apical four chamber and left parasternal long and short axis views. Mitral, tricuspid and aortic valves appear to be normal. Contractility of the left ventricle seems to be normal, so is the cavity size. Left atrial cavity size enlarged. Aortic root appears to be normal. There is no pericardial effusion. There is no thrombus noted in the left ventricular or left aortic cavity. No mitral valve prolapse noted. M-MODE: MV: NORMAL AV: NORMAL TV: NORMAL PV: CHAMBER SIZE: ENLARGED LEFT ATRIAL CAVITY WALL MOTION: NORMAL PERICARDIUM: NORMAL INTERPRETATION: 1. LEFT VENTRICULAR HYPERTROPHY WITH ENLARGED LEFT ATRIAL CAVITY 2. NORMAL LEFT VENTRICULAR CONTRACTILITY 3. NORMAL VALVES MTDD
--- NOTE | 2017-07-27 14:36 | HP ---
DATE OF SERVICE: 07/24/17 SUBJECTIVE: The patient was hospitalized today with having chest pain, pleuritic type right sided pain starting in the morning with dull ache. Also had non productive intermittent cough. On further workup the patient had right sided lobular consolidation. The patient says that he has intermittent pain more on taking a deep breath. He rates the pain as 2-8 on scale of 1-10. Onset of the these symptoms were sudden according to the patient. REVIEW OF SYSTEMS: CONSTITUTIONAL: No night sweats. No fatigue, malaise, lethargy. No fever or chills. Weakness and fatigue since morning. HEENT: Eyes: No visual changes. No eye pain. No eye discharge. ENT: No runny nose. No epistaxis. No sinus pain. No sore throat. No odynophagia. No congestion. RESPIRATORY: Cough nonproductive. , no congestion. No hemoptysis. Shortness of breath on exertion. CARDIOVASCULAR: No angina symptoms. No CHF symptoms. No atypical chest pain for CAD. No palpitations. No orthopnea. Chest pain right sided pleuritic type, more on deep inspiration. No exertional chest discomfort. Sharp pains on the chest with cough more like a pleuritic type of pain. GASTROINTESTINAL: No abdominal pain. No nausea or vomiting. No diarrhea or constipation. No hematemesis. No hematochezia. GENITOURINARY: No urgency. No frequency. No dysuria. No hematuria. No obstructive symptoms. No discharge. No pain. No significant abnormal bleeding. MUSCULOSKELETAL: No musculoskeletal pain; no joint swelling. NEUROLOGICAL: No headache. No neck pain. No syncope. No seizures. No dizziness. PSYCHIATRIC: Not anxious. No depression. No suicidal thoughts. No homicidal thoughts. SKIN: No rash. No lesions. No wounds. ENDOCRINE: No unexplained weight loss. No weight gain. HEMATOLOGIC/LYMPHATIC: No anemia. No purpura. No petechiae. No prolonged or excessive bleeding. No palpable lymph nodes. MEDICATION: Aspirin 325mg PO daily Atorvastatin 20mg PO daily Glipizide 20mg PO daily Metformin 1000mg PO twice a day Metoprolol 50mg twice a day Paxil 20mg Po daily Accupril 80mg PO daily Trulicity 0.75mg SQ weekly Remeron 15mg at bedtime Sitagliptin 25mg PO daily MEDICAL/SURGICAL PROBLEM: History of coronary artery disease Hypertension Dyslipidemia Depression Smoking Chronic lung disease PERSONAL/FAMILY/SOCIAL HISTORY: The patient is and smokes more than a pack a day. No alcohol and no drug abuse. Works more 40 hours a week. Does all activity of daily living. PHYSICAL EXAMINATION: GENERAL: The patient is oriented to time, place and person. VITAL SIGNS: Temperature 98.1, pulse 150 irregular, respiratory rate 18, blood pressure 154/94 and pulse ox 97%. HEENT: Head normocephalic, atraumatic. Eyes: Extraocular muscles are intact. Pupils are equal, round and reactive to light and accommodation. Ears: No lesions. Nose appeared normal. Throat: No exudate or erythema. NECK: Supple. No JVP, no carotid bruit. No lymphadenopathy or thyromegaly. LUNGS:Decreased breath sounds bilaterally. No wheeze. Clear to auscultation. Percussion note normal. Chest symmetrical. HEART: S1, S2 irregularly irregular, no S3. No murmurs. No cyanosis or clubbing. No ascites. Pulses: Dorsalis pedis and posterior tibial pulses +2 both sides. Apical rate is 150 per minute. ABDOMEN: Soft. Nontender. Bowel sounds active. No CVA tenderness. No mass felt. EXTREMITIES: No edema. Full range of motion of all extremities, equal. NEUROLOGIC: No focal deficit. Cranial nerves II through XII are grossly intact. No headache, no double vision or headache. SKIN: Not dry. Intact. Turgor - normal. LYMPHATIC: No palpable lymph nodes/no lymphedema. MUSCULOSKELETAL: Normal joints with no swelling. Muscle tone is normal. LABS: CT of chest which revealed right middle lobe consolidation suggestive of pneumonia, fatty liver was noted. EKG on admission sinus rhythm with no acute changes. The patient went into atrial fibrillation later on with rate of 150. The patient's urine for drug screen negative. CK was 254 elevated with normal Troponin and normal LV fracture. ABG pO2 70, pCo2 36, pH 7.40 with 94% saturation on room air. Creatinine 0.9, BUN 6, glucose 187, AST borderline high at 38, hgb 14, hct 40, WBC 11,300 with increase in the monocyte. ASSESSMENT: 1. Right middle lobe pneumonia with pleuritic pain 2. History of COPD with history of smoking 3. Atrial fibrillation, paroxysmal with increased ventricle response 4. History of coronary artery disease 5. Dyslipidemia 6. Hypertension 7. Depression PLAN: 1. Start Rocephin and Zithromax and antibiotics. 2. Prednisone 40mg Q 12 hours 3. Azithromycin 500mg given 4. Rocephin 1 gram given 5. Continue Lipitor 6. Put him on DUO NEBS Four times a day 7. Counseling for smoking done 8. The patient was given 0.25 IV Lanoxin for increase ventricular response and was given extra dose of Metoprolol 50mg. He is on 50mg twice a day. 9. The patient was continued on all the rest of the medications including: Paxil and Remeron 10. All the diagnosis discussed with the patient and the patient says that he has his dogs at home and he would like to go home. Insisted on going home tomorrow and I explained to him that his type of pneumonia and history of heart problems he needs to stay in the hospital at least 3-4 days. CONDITION: Stable. ADDENDUM: It is to be noted that the patient converted to sinus rhythm 3-4 hours after he went into atrial fibrillation with increased ventricular response. We discussed atrial fibrillation with it's complication with the patient. MARIA ISABEL
--- NOTE | 2017-07-27 15:18 | PN ---
DATE OF SERVICE: 07/25/17 SUBJECTIVE: 47 year old white male hospitalized with pneumonia right sided and also had paroxysmal atrial fibrillation one episode. The patient is feeling better and he is up and about. Blood sugar seems to be out of control, we will put him on sliding scale with coverage. We will restart all of his diabetic medications. REVIEW OF SYSTEMS: CONSTITUTIONAL: No night sweats. Fatigue and tired. No fever or chills. HEENT: Eyes: No visual changes. No eye pain. No eye discharge. ENT: No runny nose. No epistaxis. No sinus pain. No sore throat. No odynophagia. No congestion. RESPIRATORY:Cough with pleuritic pain which is better, no congestion. No hemoptysis. No shortness of breath. CARDIOVASCULAR: No angina symptoms. No CHF symptoms. No atypical chest pain for CAD. No palpitations. No orthopnea. GASTROINTESTINAL: No abdominal pain. No nausea or vomiting. No diarrhea or constipation. No hematemesis. No hematochezia. GENITOURINARY: No urgency. No frequency. No dysuria. No hematuria. No obstructive symptoms. No discharge. No pain. No significant abnormal bleeding. MUSCULOSKELETAL: No musculoskeletal pain; no joint swelling. NEUROLOGICAL: No headache. No neck pain. No syncope. No seizures. No dizziness. PSYCHIATRIC: Not anxious. No depression. No suicidal thoughts. No homicidal thoughts. SKIN: No rash. No lesions. No wounds. ENDOCRINE: No unexplained weight loss. No weight gain. HEMATOLOGIC/LYMPHATIC: No anemia. No purpura. No petechiae. No prolonged or excessive bleeding. No palpable lymph nodes. PHYSICAL EXAMINATION: GENERAL: The patient is oriented time, place and person. VITAL SIGNS: Temperature 98, pulse 75, respiratory rate 16, blood pressure 128/ 80 and pulse ox 96%. HEENT: Head normocephalic, atraumatic. Eyes: Extraocular muscles are intact. Pupils are equal, round and reactive to light and accommodation. Ears: No lesions. Nose appeared normal. Throat: No exudate or erythema. NECK: Supple. No JVD, no carotid bruit. No lymphadenopathy or thyromegaly. LUNGS: Decreased breath sounds with mild wheeze on the right side. Clear to auscultation. Percussion note normal. Chest symmetrical. HEART: S1, S2, no S3. No murmurs. No cyanosis or clubbing. No ascites. Pulses: Dorsalis pedis and posterior tibial pulses +1 to +2 both sides. ABDOMEN: Soft. Nontender. Bowel sounds active. No CVA tenderness. No mass felt. EXTREMITIES: No edema. Full range of motion of all extremities, equal. NEUROLOGIC: No focal deficit. Cranial nerves II through XII are grossly intact. No headache, no double vision or headache. SKIN: Not dry. Intact. Turgor - normal. LYMPHATIC: No palpable lymph nodes/no lymphedema. MUSCULOSKELETAL: Normal joints with no swelling. Muscle tone is normal. LABS: Hgb 14, HCt 40, WBC 15,000 normal differential, creatinine 0.8, BUN 9, glucose 263, CK-MB 2-, BNP 16. EKG sinus rhythm. Telemetry strips sinus rhythm now, no atrial fibrillation. ASSESSMENT: 1. Right sided lobular pneumonia seems to be resolving 2. Pleuritic pain seems to be subsiding 3. Atrial fibrillation one episode and no more 4. Coronary artery disease 2006 with collateral stenosis it was tortuous so the stent was not placed 5. Dyslipidemia 6. Hypertension 7. BMI of 31 PLAN: 1. Risk of factors for coronary artery disease discussed and advised to lose weight, advised to quit smoking 2. Continue antibiotics 3. Continue steroids 4. Sliding scale 5. The patient had an echocardiogram done which showed LVH with enlarged LA cavity which is 4.2 to 4.4cm with normal valves. 6. Atrial fibrillation and complications discussed CONDITION: Stable. TIME SPENT: More than 30 minutes. Plan and coordination of the patient's care discussed in the presence of nurse. MARIA ISABEL
--- NOTE | 2017-07-27 15:44 | PN ---
DATE OF SERVICE: 07/26/17 SUBJECTIVE: The patient is up and about doing well. Still has mild pleuritic type of pain, cough is dry. Rhythm strips reviewed and no atrial fibrillation noted. The patient had an echo done yesterday which showed LVH with enlargement of the left atrial cavity which is around 4.3 to 4.5. Explained about regular followup and advised to cut down on salt intake. Advised to lose at least 15-20 pounds. BMI 31. Also monitor the blood pressure. The goal blood pressure should be 130/ 80. The patient also has been advised to keep his A1c 6-7. Advised to have eye MD or Thermologist to check his eyes every yearly. The patient is noncompliant for followup medications and diet. REVIEW OF SYSTEMS: CONSTITUTIONAL: No night sweats. No fatigue, malaise, lethargy. No fever or chills. HEENT: Eyes: No visual changes. No eye pain. No eye discharge. ENT: No runny nose. No epistaxis. No sinus pain. No sore throat. No odynophagia. No congestion. RESPIRATORY: Mild cough, no congestion. No hemoptysis. Mild shortness of breath on exertion. CARDIOVASCULAR: No angina symptoms. No CHF symptoms. No atypical chest pain for CAD. No palpitations. No orthopnea.Pleuritic pain. GASTROINTESTINAL: No abdominal pain. No nausea or vomiting. No diarrhea or constipation. No hematemesis. No hematochezia. GENITOURINARY: No urgency. No frequency. No dysuria. No hematuria. No obstructive symptoms. No discharge. No pain. No significant abnormal bleeding. MUSCULOSKELETAL: No musculoskeletal pain; no joint swelling. NEUROLOGICAL: No headache. No neck pain. No syncope. No seizures. No dizziness. PSYCHIATRIC: Not anxious. No depression. No suicidal thoughts. No homicidal thoughts. SKIN: No rash. No lesions. No wounds. ENDOCRINE: No unexplained weight loss. No weight gain. HEMATOLOGIC/LYMPHATIC: No anemia. No purpura. No petechiae. No prolonged or excessive bleeding. No palpable lymph nodes. PHYSICAL EXAMINATION: GENERAL: The patient is oriented to time, place and person. HEENT: Head normocephalic, atraumatic. Eyes: Extraocular muscles are intact. Pupils are equal, round and reactive to light and accommodation. Ears: No lesions. Nose appeared normal. Throat: No exudate or erythema. NECK: Supple. No JVD, no carotid bruit. No lymphadenopathy or thyromegaly. LUNGS: Decreased breath sounds with mild wheeze. Clear to auscultation. Percussion note normal. Chest symmetrical. HEART: S1, S2, no S3. No murmurs. No cyanosis or clubbing. No ascites. Pulses: Dorsalis pedis and posterior tibial pulses +1 to +2 both sides. ABDOMEN: Soft. Nontender. Bowel sounds active. No CVA tenderness. No mass felt. EXTREMITIES: No edema. Full range of motion of all extremities, equal. NEUROLOGIC: No focal deficit. Cranial nerves II through XII are grossly intact. No headache, no double vision or headache. SKIN: Not dry. Intact. Turgor - normal. LYMPHATIC: No palpable lymph nodes/no lymphedema. MUSCULOSKELETAL: Normal joints with no swelling. Muscle tone is normal. ASSESSMENT: 1. Pneumonia seems to be clinically resolving 2. Atrial fibrillation, one episode which lasted several hours and no more after that 3. Hypertension 4. Dyslipidemia 5. Diabetes Mellitus 6. Smoking PLAN: 1. Counseling for smoking cessation done 2. Continue steroids, antibiotics, NEBS treatment 3. The patient may need stress echo as an outpatient. CONDITION: Stable. TIME SPENT: More than 30 minutes. Plan and coordination of the patient's care discussed in the presence of nurse. MARIA ISABEL
--- NOTE | 2017-07-28 12:11 | ECHOSTRESS ---
Date of Exam: 07/27/17 Ordering Physician: DR. NAGI PATEL Reason for Echo: ATRIAL FIBRILLATION, CHEST PAIN, STRESS TEST--NO ISCHEMIA M-Mode Normal Adult Results LV Dimensions Normal Adult Results AoV Opening excursions >1.6 LVEDD-base- 3.5-5.8 Ao root dimensions 2.0-3.7 LVESD-base- 3.1-4.6 L. Atrium dimensions 1.9-3.8 Post. Wall thickness 0.8-1.1 IV septum (thickness) 0.7-1.2 Post. Wall excursion 0.72-1.3 Septal motion Systolic motion R. Ventricular cavity 1.5-2.0 LVEF 60% Paradoxical septal wall motion 2-D: NORMAL LEFT VENTRICULAR CONTRACTILITY--RESTING AND POST EXERCISE M-MODE: MV: AV: TV: PV: CHAMBER SIZE: WALL MOTION: NORMAL LEFT VENTRICULAR CONTRACTILITY--RESTING AND POST EXERCISE PERICARDIUM: INTERPRETATION: 1. NORMAL LEFT VENTRICULAR CONTRACTILITY--RESTING AND POST EXERCISE MTDD
--- NOTE | 2017-07-28 12:37 | STRESSECHO ---
Date of Test: 07/27/17 Ordering Physician: DR. NAGI PATEL Occupation: LOADER OPERATOR Reason for Exam: ATRIAL FIBRILLATION, CHEST PAIN Smoking History: 33 PK YRS Height: 72" Weight: 229 LBS Current Medications: LIPITOR, GLUCOTROL, LOPRESSOR, REMERON, TRULICITY, PAXIL, ACCUPRIL, JANUVIA Physical Findings: S1, S2, NO S3 Resting EKG: SINUS RHYTHM/ NO ACUTE CHANGES Target Heart Rate: 145/171 S-T SEGMENT STAGE MPH/GRADE HEART RATE BPM BLOOD PRESSURE MMHG RHYTHM +/- ELEVATION DEPRESSION SYMPTOMS,COMMENTS AT REST 63 140/70 SR X NONE 1 1.7/10% 98 138/70 SR X NONE 2 2.5/12% 103 146/80 SR X NONE 3 3.4/14% 4 4.2/16% 5 5.0/18% Immediately After 108 SR X FATIGUE Minutes Post Exercise 5:00 70 146/80 SR X NO COMMENTS Minutes Post Exercise DURATION OF EXERCISE: 6:26 MAXIMUM HEART RATE REACHED: 108 BPM REASON FOR TERMINATION: FATIGUE 96% OXYGEN SATURATION WITH EXERCISE ON ROOM AIR METS: 8.2 INTERPRETATION: 1. NO EVIDENCE OF ISCHEMIA FROM RESTING HEART RATE 63 BPM TO 108 BPM WITH EXERCISE 2. NO CHEST PAIN OR DISCOMFORT 3. NO ARRHYTHMIAS 4. BLOOD PRESSURE RESPONSE: NORMAL NORMAL LEFT VENTRICULAR CONTRACTILITY--RESTING AND POST EXERCISE MTDD
--- NOTE | 2017-07-29 13:50 | PN ---
DATE OF SERVICE: 07/27/17 SUBJECTIVE: The patient was seen and examined with Nurse Practitioner. He is up and about doing well. No cough and no congestion. Chest x-ray shows mild bronchitis. He didn't have any atrial fibrillation. We will evaluate the patient for chest pain before discharge with stress echo. Echo showed LVH with enlarged LA cavity , no atrial fibrillation noted again. Had one episode of it. Advised to keep his weight down and keep blood pressure under control. Atrial fibrillation discussed. No need to commit him for any blood thinner with just on episode which probably triggered by pneumonia. CONDITION: Stable. TIME SPENT: More than 30 minutes. Plan and coordination of the patient's care discussed in the presence of nurse. MARIA ISABEL
--- NOTE | 2017-07-29 13:51 | PN ---
07/24/17: Level 5 07/25/17: Intermediate 07/26/17: Intermediate 07/27/17: D as in discharge MTDD
--- NOTE | 2017-07-29 15:21 | DS ---
DATE OF SERVICE: 07/27/17 FINAL DIAGNOSIS: 1. Pneumonia, Right middle lobe per CT 2. COPD 3. Atrial fibrillation, brief episode 4. Hypertension 5. CAD 6. Hypercholesterolemia 7. Fatty liver per CT 8. Diabetes Mellitus, type 2 9. [place], 2006 10.Tobacco use 11.Bilateral inguinal hernia repair 12.Achilles tendon lengthening, age 3 LAST VITALS: Temperature 97.6, pulse 62, respiratory rate 20, blood pressure 122/70 and pulse ox 97%. DISCHARGE INSTRUCTIONS: Discharge home. An appointment is scheduled with Dr. Roberto/Veronique Pascual APRN on July 31 at 12 Noon. No work for 7 days. MEDICATIONS AT DISCHARGE: ProAir 2 puff IG Q 4-6 hours PRN Aspirin 325mg PO daily Lipitor 20mg PO daily Glucotrol XL 20mg Po daily Glucophage 1000mg PO twice a day Lopressor 50mg PO twice a day Remeron 15mg PO bedtime PRN Trulicity 0.75mg SQ weekly Paxil 20mg Po daily Accupril 80mg PO daily Januvia 25mg PO daily Keflex 500mg PO three times a day for 7 days Prednisone 10mg PO twice a day for 5 days. ALLERGIES: Sulfa Venom-honey bee NEW PRESCRIPTIONS: Keflex 500mg PO three times a day for 7 days Prednisone 10mg PO twice a day for 5 days. Take with food ProAir inhaler two puffs every 4-6 hours PRN shortness of air/wheezing DIET INSTRUCTIONS: Regular as tolerated, heart healthy ACTIVITY: Gradually resume as tolerated. SMOKING: Advised to stop smoking DISEASE SPECIFIC EDUCATION: Smoking cessation Use of inhaler Steroid use and risk of GI irritation, bone demineralization Outpatient testing Appointment HOSPITAL COURSE: This is a 47 year old white male who presented to the emergency room complaining of right sided chest pain and mild shortness of breath. CT scan revealed consolidation in the right middle lobe. He was admitted and placed on Solu-Medrol 40mg Q 12 hours IV along with Rocephin 1 gram IV daily. Given IV fluids normal saline at 75cc an hour and all his home medications were continued. We placed him on DUO NEBS Q 6 hours. WBC was initially elevated and it is still somewhat elevated although improved and he hasn't been on steroid therapy. He has responded well. Chest pain was more pleuritic type pain just on the right sided which has subsequently resolved. For the past 36 hours he has been up and about walking around on his own, not wearing any oxygen and eating 75-100% of his meals. He is not short of breath, his cough has improved and he is no longer experiencing any pain with coughing or even with deep breathing. Vital signs have been stable; Temperature 97.6, heart rate 62, respirations 20, blood pressure 122/70 and pulse 97%. We will discharge him home today in stable condition. WBC 17, hgb 13.3, hct 38.7, plt count 216, sodium 132, potassium 4.7 , BUN 13, creatinine 0.81. Stress echo was done by Dr. Roberto prior to discharge and it was negative. Due to his component chest pain and he also has a history of a dyslipidemia and diabetes which is out of control somewhat due to noncompliance. However despite the risk factors the stress echo was negative. He will discharged home on Keflex 500mg PO three times a day for the next 7 days along with Prednisone 10mg twice a day for the next 5 days. Repeat chest x- ray done yesterday showed no pneumonia. I will send him home with ProAir inhaler to do at least three times a day. He is not to go back to work times one week. 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 Discharged today in stable condition. TIME SPENT: More than 60 minutes. MARIA ISABEL
== END 2017-07-27 13:20 | disposition home or self-care (01) | DRG 204 ==
LOC: ED 07:00 → MEDSURG A 09:25
PROVIDERS: ADMIT Internal Medicine; ATTEND Internal Medicine
DX: R07.81 Pleurodynia (principal); J18.9 Pneumonia, unspecified organism; J44.0 Chronic obstructive pulmonary disease with (acute) lower respiratory infection; I10 Essential (primary) hypertension; F17.209 Nicotine dependence, unspecified, with unspecified nicotine-induced disorders; E11.9 Type 2 diabetes mellitus without complications; Z79.4 Long term (current) use of insulin; Z79.84 Long term (current) use of oral hypoglycemic drugs; F41.8 Other specified anxiety disorders; E66.9 Obesity, unspecified; Z68.30 Body mass index [BMI] 30.0-30.9, adult; Z71.3 Dietary counseling and surveillance; Z91.19 Patient's noncompliance with other medical treatment and regimen; E78.5 Hyperlipidemia, unspecified; I48.91 Unspecified atrial fibrillation; I25.10 Atherosclerotic heart disease of native coronary artery without angina pectoris
CPT/HCPCS: 36415; 80053; 80306; 82550; 82553; 82803; 82962; 83605; 83880; 84145; 84484; 85025; 87040; 93005; 93010; 94640; 96365; 96375; 97802; 99284

== ENCOUNTER 2017-10-27 21:05 | Emergency (ER) ==
[2017-10-27 21:16] VITALS: TEMP 99.1; BMI 30.3
[2017-10-27] MEDS ORDERED: SODIUM CHLORIDE 1,000 ML IV STA (21:30)
[2017-10-27 21:35] VITALS: BP 144/105
--- NOTE | 2017-10-27 22:08 | CT ---
EXAM: CT Head HISTORY: Dizziness COMPARISON: None TECHNIQUE: CT head performed without contrast FINDINGS: There is no mass effect, midline shift, or intracranial hemmorhage. Lozoya white differenti ation is preserved. There is no extra-axial collection. The ventricles, sulci, and basal cisterns a re patent and symmetric. There is mild chronic ischemic disease of the white matter and cerebral vol ume loss. There is no depressed calvarial fracture. The mastoid air cells are clear. The visualized paranasal sinuses are clear. There are intracranial atherosclerotic calcifications. IMPRESSION: 1. No acute intracranial abnormality. 2. Mild chronic ischemic disease of the white matter and cerebral volume loss.
--- NOTE | 2017-10-27 23:12 | ED.PDOC ---
General ED Provider: Dr. ASHISH NGUYEN Chief Complaint: Dizziness Stated Complaint: pateint reports dizziness for few days worse with turning his head. He feels like the room is spinning for few sec after he turns he head. Time Seen by Physician: 21:20 Mode of Arrival: Walk-In Information Source: Patient Exam Limitations: No limitations Primary Care Provider: NAGI PATEL Nursing and Triage Documentation Reviewed and Agree: Yes Does patient meet sepsis criteria?: No System Inflammatory Response Syndrome: Not Applicable Sepsis Protocol: For patient's 13 years and over: Temp is 96.8 and below OR 101 and greater Pulse >90 BPM Resp >20/minute Acutely Altered Mental Status Are patient's symptoms suggestive of a new infection, such as: -Pneumonia -Skin, Soft Tissue -Endocarditis -UTI -Bone, Joint Infection -Implantable Device -Acute Abdominal Infection -Wound Infection -Meningitis -Blood Stream Catheter Infection -Unknown Neurological Complaint Exam - Dizziness Complaint/Exam Last Known Well: 4 days ago Onset: Gradual Symptoms Are: Still present Timing: Intermittent (with turning head or sitting up) Initial Severity: Severe Current Severity: Moderate Character: Reports: Head spinning, Lightheaded, Dizzy Aggravating: Reports: Position change, Change in head position Alleviating: Reports: Rest Associated Signs and Symptoms: Denies: Nausea, Vomiting, Diaphoresis, Tinnitus, Chest pain, Short of air, Palpitations, Unsteady gait, GI blood loss, Visual changes, Decreased oral intake, Change in medication, Change in diet, OTC meds, Loss of balance Cardiac Risk Factors: Reports: Hypertension, Smoking CVA Risk Factors: Reports: Hypertension, Smoking Glascow Coma Scale (see protocol): 15 Nystagmus Present: Yes (with turning to the right ) Gag Reflex Present: No Meningeal Signs Positive: No Focal Weakness: Present: None Focal Sensory Loss: Present: None Gait: Normal [id number]: Normal Findings Romberg Test Positive: No Babinski Sign: Negative Right, Negative Left Heel to Toe Normal: No Bee-Hallpike Test Positive: Yes (right ) Differential Diagnoses: BPPV, Hypovolemia (as depicted with ortho statis) Review of Systems - Review Of Systems Constitutional: Reports: No symptoms Eyes: Reports: No symptoms Ears, Nose, Mouth, Throat: Reports: No symptoms Respiratory: Reports: No symptoms Cardiac: Reports: Lightheadedness GI: Reports: No symptoms : Reports: No symptoms Musculoskeletal: Reports: No symptoms Skin: Reports: No symptoms Neurological: Reports: Anxiety, Other (dizziness ) Endocrine: Reports: No symptoms Hematologic/Lymphatic: Reports: No symptoms All Other Systems: Reviewed and Negative Past Medical History - Past Medical History Previously Healthy: Yes Endocrine: Reports: Unknown Cardiovascular: Reports: Unknown Respiratory: Reports: Unknown Hematological: Reports: Unknown Gastrointestinal: Reports: Unknown Genitourinary: Reports: Unknown Neuro/Psych: Reports: Unknown Musculoskeletal: Reports: Unknown Cancer: Reports: Unknown - Surgical History General Surgical History: Reports: Unknown - Family History Family History: Reports: Unknown - Social History Smoking Status: Current every day smoker, Light tobacco smoker Hx Substance Use: No Alcohol Screening: None Physical Exam - Physical Exam Appearance: Ill-appearing Ill-appearing: Mild Eyes: LATISHA, EOMI, Conjunctiva clear ENT: Ears normal, Nose normal, Oropharynx normal Neck: Supple Respiratory: Airway patent, Breath sounds clear, Breath sounds equal, Respirations nonlabored Cardiovascular: RRR, Pulses normal, No rub, No murmur GI/: Soft, Nontender, No masses, Bowel sounds normal, No Organomegaly Musculoskeletal: Normal strength, ROM intact, No edema, No calf tenderness Skin: Warm, Dry, Normal color Neurological: Sensation intact, Motor intact, Reflexes intact, Cranial nerves intact, Alert, Oriented Psychiatric: Anxious Interpretation - Radiology Interpretation Radiology Interpretation By: Radiologist Radiology Results: Negative Exam Interpreted: CT Scan Radiology Interpretation By: ED Physician Radiology Results: Negative Exam Interpreted: Portable CXR - Fire Official Rate: Normal Rhythm: Sinus - EKG Interpretation Time of EKG #1: 21:48 Rate: Normal Rhythm: Sinus Ectopy: None [place]: NL Interpretation: old inferior infarct Critical Care Note - Critical Care Note Total Time (mins): 35 Course - Course Hematology/Chemistry: 10/27/17 22:00 10/27/17 22:00 Orders, Labs, Meds: Lab Review 10/27/17 10/27/17 22:00 22:00 WBC 12.25 H RBC 4.94 Hgb 14.8 Hct 43.4 MCV 87.9 MCH 30.0 MCHC 34.1 RDW Coeff of Ok 13.3 Plt Count 187 Immature Gran % (Auto) 0.3 Neut % (Auto) 67.1 Lymph % (Auto) 24.1 [place] % (Auto) 7.2 Eos % (Auto) 1.0 Baso % (Auto) 0.3 Immature Gran # (Auto) 0.0 Neut # (Auto) 8.2 H Lymph # (Auto) 3.0 [place] # (Auto) 0.9 Eos # (Auto) 0.1 Baso # (Auto) 0.0 Sodium 138.0 Potassium 4.43 Chloride 102.8 Carbon Dioxide 28.1 Anion Gap 11.53 BUN 8.3 L Creatinine 0.95 Estimated GFR (MDRD) 84.00 BUN/Creatinine Ratio 8.73 Glucose 142.6 H Calcium 9.71 Total Bilirubin 0.67 AST 59.2 H ALT 72.4 H Alkaline Phosphatase 75.8 Total Creatine Kinase 137.0 CK-MB (CK-2) 1.100 CK-MB (CK-2) % 0.8000 Troponin I < 0.012 Total Protein 7.34 Albumin 4.38 Globulin 2.96 Albumin/Globulin Ratio 1.47 Orders Category Date Time Status EKG-(ED ONLY) Stat CARDIO 10/27/17 21:30 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 10/27/17 21:30 Active ED IV/MEDIPORT/POWERPORT .ONCE EMERGENCY 10/27/17 21:30 Active CBC W/ AUTO DIFF Stat LAB 10/27/17 22:00 Completed COMPREHENSIVE METABOLIC PANEL Stat LAB 10/27/17 22:00 Completed CREATINE KINASE Stat LAB 10/27/17 22:00 Completed TROPONIN I Stat LAB 10/27/17 22:00 Completed 0.9 % Sodium Chloride [Saline Flush] MEDS 10/27/17 21:30 Discontinued 1 syr IVF PRN PRN Sodium Chloride 0.9% [Sodium Chloride] 1,000 ml MEDS 10/27/17 21:30 Discontinued IV 125 mls/hr CHEST, 1V AP ONLY Stat RADS 10/27/17 21:[address] HEAD W/O CONTRAST Stat RADS 10/27/17 21:30 Completed Medications Discontinued Medications Generic Name Dose Route Start Last Admin Trade Name Freq PRN Reason Stop Dose Admin Sodium Chloride 1,000 mls @ 125 mls/hr 10/27/17 21:30 10/27/17 22:09 Sodium Chloride IV 10/28/17 05:29 125 mls/hr .Q8H STA Administration Sodium Chloride 1 syr 10/27/17 21:30 Saline Flush IVF PRN PRN To flush IV Vital Signs: Temp Pulse Resp BP Pulse Ox 10/27/17 21:35 88 144/105 H 10/27/17 21:34 85 157/102 H 10/27/17 21:33 82 162/114 H 10/27/17 21:05 99.1 F 87 16 168/108 H 94 L Departure - Departure Time of Disposition: 23:17 Disposition: HOME SELF-CARE Discharge Problem: Orthostasis BPPV (benign paroxysmal positional vertigo) Qualifiers: Laterality: right Qualified Code(s): H81.11 - Benign paroxysmal vertigo, right ear Instructions: Benign Paroxysmal Positional Vertigo (ED), Dizziness (ED) Condition: Good Pt referred to PMD for follow-up: Yes IPMP verified?: No Additional Instructions: PUSH FLUIDS TAKE MEDICATIONS FOR DIZZINESS NEEDED FOLLOW UP WITH PCP IN 2-3 DAYS TO BE REFEREED TO PHYSICAL THERAPY FOR TREATMENT OF VERTIGO. Prescriptions: Meclizine HCl 25 mg PO TID PRN #30 tablet PRN Reason: Vertigo Allergies/Adverse Reactions: Allergies Sulfa (Sulfonamide Antibiotics) Adverse Reaction (Verified 10/27/17 21:09) venom-honey bee [bee venom (honey bee)] Adverse Reaction (Verified 10/27/17 21: 09) Home Medications: Ambulatory Orders Aspirin [Aspirin EC] 325 mg PO DAILYWM 05/29/13 Atorvastatin Calcium [Lipitor] 20 mg PO DAILY 05/29/13 Glipizide [Glucotrol Xl] 20 mg PO DAILY 05/29/13 Metformin HCl [Glucophage] 1,000 mg PO BID 05/29/13 Metoprolol Tartrate [Lopressor] 50 mg PO BID 05/29/13 Paroxetine HCl [Paxil] 20 mg PO DAILY 05/29/13 Quinapril HCl [Accupril] 80 mg PO DAILY 05/29/13 Dulaglutide [Trulicity] 0.75 mg SQ WEEKLY 11/30/16 Mirtazapine [Remeron] 15 mg PO BEDTIME PRN 11/30/16 Sitagliptin Phosphate [Januvia] 25 mg PO DAILY 11/30/16 Albuterol Sulfate [Proair Hfa] 2 puff IH Q4-6H PRN #1 inh 07/27/17 Meclizine HCl 25 mg PO TID PRN #30 tablet 10/27/17 Disposition Discussed With: Patient
--- NOTE | 2017-10-28 09:49 | DI ---
EXAM: CHEST FRONTAL VIEW HISTORY: Dizziness. COMPARISON: 07/26/2017 FINDINGS: Heart size and mediastinum remain within normal limits. A small focal density above the right hemidiaphragm may represent persistence of focal consolidation or scarring seen on prior CT [facility] [address] dated 07/24/2017, versus a nipple shadow. Less likely a developing nodule could be considered. L ungs are otherwise clear and unremarkable. IMPRESSION: Indeterminate focal density over the right lung base. Consider follow-up radiography with nipple markers in place.
== END 2017-10-27 23:30 | disposition home or self-care (01) ==
LOC: ED 21:05
DX: H81.11 Benign paroxysmal vertigo, right ear (principal); I95.1 Orthostatic hypotension; I10 Essential (primary) hypertension; F17.210 Nicotine dependence, cigarettes, uncomplicated; Z79.899 Other long term (current) drug therapy
CPT/HCPCS: 36415; 80053; 82550; 82553; 84484; 85025; 93005; 93010; 96360; 96361; 99283

== ENCOUNTER 2017-11-08 10:32 | Emergency (ER) ==
[2017-11-08 10:40] VITALS: BP 146/102; TEMP 99.7; BMI 30.9
--- NOTE | 2017-11-08 10:52 | ED.PDOC ---
General ED Provider: Dr. REYES LOGAN-ER Chief Complaint: Extremity Swelling/Pain Stated Complaint: my leg Time Seen by Physician: 10:51 Mode of Arrival: Walk-In Information Source: Patient Exam Limitations: No limitations Primary Care Provider: NAGI PATEL Nursing and Triage Documentation Reviewed and Agree: Yes Does patient meet sepsis criteria?: No System Inflammatory Response Syndrome: Not Applicable Sepsis Protocol: For patient's 13 years and over: Temp is 96.8 and below OR 101 and greater Pulse >90 BPM Resp >20/minute Acutely Altered Mental Status Are patient's symptoms suggestive of a new infection, such as: -Pneumonia -Skin, Soft Tissue -Endocarditis -UTI -Bone, Joint Infection -Implantable Device -Acute Abdominal Infection -Wound Infection -Meningitis -Blood Stream Catheter Infection -Unknown Musculoskeletal Complaint Exam - Lower Extremity Complaint/Exam Location of Pain: Reports: Right, Leg Mechanism of Injury: Reports: No known trauma Onset/Duration: several days Symptoms Are: Still present Onset of Pain: Reports: Immediate Initial Severity: Mild Location: Reports: Discrete Aggravating: Reports: Movement Able to Bear Weight: Yes Associated Signs and Symptoms: Reports: Swelling Septic Arthritis Risk Factors: Reports: None Lower Extremity Findings: Present: Swelling, Tenderness NV Bundle Intact Distal to Injury: Yes Compartment Syndrome Risk Factors: Present: Pain Rasheeda's Sign Present: No Differential Diagnoses: DVT Review of Systems - Review Of Systems Constitutional: Reports: No symptoms Eyes: Reports: No symptoms Ears, Nose, Mouth, Throat: Reports: No symptoms Respiratory: Reports: No symptoms Cardiac: Reports: No symptoms GI: Reports: No symptoms : Reports: No symptoms Musculoskeletal: Reports: No symptoms Skin: Reports: No symptoms Neurological: Reports: No symptoms Endocrine: Reports: No symptoms Hematologic/Lymphatic: Reports: No symptoms All Other Systems: Reviewed and Negative Past Medical History - Past Medical History Previously Healthy: Yes Endocrine: Reports: Unknown Cardiovascular: Reports: Unknown Respiratory: Reports: Unknown Hematological: Reports: Unknown Gastrointestinal: Reports: Unknown Genitourinary: Reports: Unknown Neuro/Psych: Reports: Unknown Musculoskeletal: Reports: Unknown Cancer: Reports: Unknown - Surgical History General Surgical History: Reports: Unknown - Family History Family History: Reports: Unknown - Social History Smoking Status: Current some day smoker Hx Substance Use: No Alcohol Screening: None - Immunizations Tetanus Shot up to Date: No Physical Exam - Physical Exam Appearance: Well-appearing, No pain distress, Well-nourished Pain Distress: Mild Eyes: LATISHA, EOMI, Conjunctiva clear ENT: Ears normal, Nose normal, Oropharynx normal Neck: Supple Respiratory: Airway patent, Breath sounds clear, Breath sounds equal, Respirations nonlabored Cardiovascular: RRR, Pulses normal, No rub, No murmur GI/: Soft, Nontender, No masses, Bowel sounds normal, No Organomegaly Musculoskeletal: Normal strength, ROM intact, No edema, No calf tenderness Skin: Warm, Dry, Normal color Neurological: Sensation intact, Motor intact, Reflexes intact, Cranial nerves intact, Alert, Oriented Psychiatric: Affect appropriate, Mood appropriate Physician Notification - Case Discussed Physician Notified: dr bueno--agreed to see in er Time of Notification: 10:57 Critical Care Note - Critical Care Note Total Time (mins): 0 Course - Course Vital Signs: Temp Pulse Resp BP Pulse Ox 11/08/17 10:34 99.7 F H 89 16 146/102 H 93 L Departure - Departure Time of Disposition: 10:57 Disposition: TSF SHORT-TRM HOSP Discharge Problem: Right leg swelling Instructions: Leg Edema (ED) Condition: Good Pt referred to PMD for follow-up: Yes IPMP verified?: No Additional Instructions: go straight to er for venous scan--f/u with this week Allergies/Adverse Reactions: Allergies Sulfa (Sulfonamide Antibiotics) Adverse Reaction (Verified 11/08/17 10:42) venom-honey bee [bee venom (honey bee)] Adverse Reaction (Verified 11/08/17 10: 42) Home Medications: Ambulatory Orders Aspirin [Aspirin EC] 325 mg PO DAILYWM 05/29/13 Atorvastatin Calcium [Lipitor] 20 mg PO DAILY 05/29/13 Glipizide [Glucotrol Xl] 20 mg PO DAILY 05/29/13 Metformin HCl [Glucophage] 1,000 mg PO BID 05/29/13 Metoprolol Tartrate [Lopressor] 50 mg PO BID 05/29/13 Paroxetine HCl [Paxil] 20 mg PO DAILY 05/29/13 Quinapril HCl [Accupril] 80 mg PO DAILY 05/29/13 Dulaglutide [Trulicity] 0.75 mg SQ WEEKLY 11/30/16 Mirtazapine [Remeron] 15 mg PO BEDTIME PRN 11/30/16 Sitagliptin Phosphate [Januvia] 25 mg PO DAILY 11/30/16 Albuterol Sulfate [Proair Hfa] 2 puff IH Q4-6H PRN #1 inh 07/27/17 Transfer Form Completed: Yes Disposition Discussed With: Patient
== END 2017-11-08 11:11 | disposition short-term general hospital (02) ==
LOC: ED 10:32
DX: M79.604 Pain in right leg (principal); R60.0 Localized edema; F17.210 Nicotine dependence, cigarettes, uncomplicated
CPT/HCPCS: 99282